=== PATIENT | female | born 1975 | race Caucasian/White ===

== ENCOUNTER 2019-07-11 09:54 | Outpatient (CLI) | payer OTHER ==
[2019-07-11] MEDS ORDERED: gadopentetate dimeglumine 7.5 MMOL/15 ML syringe ONE (15:54)
[2019-07-11] MEDS ORDERED: gadopentetate dimeglumine 5 mmol/10ml vial IV ONE (15:54)
== END 2019-07-11 23:59 | disposition home or self-care (01) ==
LOC: RAD 09:54
PROVIDERS: ATTEND Family Medicine
DX: Q61.02 Congenital multiple renal cysts (principal); N28.9 Disorder of kidney and ureter, unspecified; F17.200 Nicotine dependence, unspecified, uncomplicated
CPT/HCPCS: 74183; A9579

== ENCOUNTER 2020-12-27 09:55 | Day surgery (SDC) | payer OTHER ==
[2020-12-17 17:05] LABS: BASOPHILS # (AUTO) 0.1 X10'3 (0-0.2); BASOPHILS % (AUTO) 0.7 % (0-1); EOSINOPHILS # (AUTO) 0.4 X10'3 (0-0.9); EOSINOPHILS % (AUTO) 3.3 % (0-6); LYMPHOCYTES % (AUTO) 18.1 % (21-51); MEAN CORPUSCULAR HEMOGLOBIN 29.4 PG (27.0-31.0); MEAN CORPUSCULAR HGB CONC 33.4 g/dL (33.0-36.5); MEAN CORPUSCULAR VOLUME 87.8 FL (78-98); MEAN PLATELET VOLUME 9.2 FL (7.4-10.4); MONOCYTES # (AUTO) 0.9 X10'3 (0-0.9); MONOCYTES % (AUTO) 7.7 % (2-12); NEUTROPHILS # (AUTO) 7.9 X10'3 (1.8-7.7); NEUTROPHILS % (AUTO) 70.2 % (42-75); PRE OP HEMATOCRIT 44.1 % (35.0-45.0); PRE OP HEMOGLOBIN 14.7 g/dL (12.0-16.0); PRE OP PLATELET COUNT 311 X10'3 (140-440); RED BLOOD COUNT 5.02 X10'6 (4.20-5.60)
[2020-12-17 17:22] LABS: ALBUMIN 3.3 G/DL (3.4-5.0); ALBUMIN/GLOBULIN RATIO 0.8 (1.1-1.5); ALKALINE PHOSPHATASE 95 IU/L (46-116); BLOOD UREA NITROGEN 12 MG/DL (7-18); CALCIUM 9.3 MG/DL (8.5-10.1); CHLORIDE 105 MMOL/L (99-107); PRE OP ALT 25 U/L (30-65); PRE OP ANION GAP 14 (8-16); PRE OP AST 22 U/L (10-37); PRE OP BILIRUB, TOTAL 0.5 MG/DL (0.0-1.0); PRE OP GLUCOSE 89 MG/DL (70-104); PRE OP SODIUM 141 MMOL/L (135-145); TOTAL CARBON DIOXIDE 22.5 MMOL/L (24-32); TOTAL PROTEIN 7.7 G/DL (6.4-8.2); eGFR 77 ML/MIN
[~2020-12-27] VITALS: Ht 175.3 cm; Wt 148.6 kg
[2020-12-27] VITALS (13 sets, daily range): BP systolic 119–186; BP diastolic 61–110
[~2020-12-27 09:55] MED LIST: HYDR-3972 PO; QUET150T4 PO; SERT25TA PO; SUMA50TA PO; ceFAZolin inj. 3,000 MG in normal saline 100ml IV soln 100 ML IV ONE; famotidine 20mg tablet PO ONE; ringers solution, lacted 1,000 ML IV SCH
[2020-12-27 10:27] LABS: CLARITY,URINE CLOUDY (Clear); COLOR,URINE YELLOW (Yellow); GLUCOSE, URINE NEGATIVE (Neg); KETONES,URINE NEGATIVE (Neg); LEUKOCYTE ESTERASE ,URINE TRACE (Neg); NITRITES, URINE NEGATIVE (Neg); OCCULT BLOOD,URINE SMALL (Neg); PROTEIN,URINE TRACE mg/dl (Neg); UROBILINOGEN,URINE 0.2 E.U/dL (0.2-1.0)
[2020-12-27 10:34] LABS: UA COLLECTION TYPE VOIDED
[2020-12-27 10:36] LABS: MUCUS STRANDS MANY /LPF (Neg); SQUAMOUS EPITHELIAL CELL,UR MANY /LPF (FEW)
[2020-12-27 10:38] LABS: CELLULAR CAST 0-4 /LPF (NEGATIVE); FINE GRANULAR CAST 0-3 /LPF (NEGATIVE)
[2020-12-27 10:41] LABS: BACTERIA,URINE 2+ /HPF (Neg)
[2020-12-27] MEDS ORDERED: bacitracin 15gm ointment TP ONE (10:41)
[2020-12-27] MEDS ORDERED: albuterol 2.5 MG/3 ML nebule NEB ONE (11:40)
[2020-12-27] MEDS ORDERED: propofol inj 20 ML IV ONE ×2 (14:08→15:05)
[2020-12-27] MEDS ORDERED: ROPIVAcaine 0.5% (5mg/ml) 30ml vial ONE ×3 (14:08→15:05)
[2020-12-27] MEDS ORDERED: fentaNYL/PF 50MCG/1 ML 2ML syringe ONE (14:09)
[2020-12-27] MEDS ORDERED: MIDAZolam 5mg/5ml vial ONE (14:09)
[2020-12-27] MEDS ORDERED: LIDOcaine 2% (20mg/ml) 5ml vial ONE (15:05)
[2020-12-27] MEDS ORDERED: rocuronium 10mg/ml inj IV ONE (15:06)
[2020-12-27] MEDS ORDERED: acetaminophen 1,000mg/100ml IV 100 ML IV ONE (15:09)
[2020-12-27] MEDS ORDERED: morphine 4 MG/ML inj SYRINge IV PRN (15:15)
[2020-12-27] MEDS ORDERED: ringers solution, lacted 1,000 ML IV SCH (15:15)
[2020-12-27] MEDS ORDERED: ondansetron/PF 4mg/2ml inj IV PRN (15:15)
[2020-12-27] MEDS ORDERED: labetalol 20mg/4ml (5mg/ml) syringe IV PRN (15:15)
[2020-12-27] MEDS ORDERED: hydrALAZINE 20mg/ml inj. IV PRN (15:15)
[2020-12-27] MEDS ORDERED: morphine 2 MG/ML inj. syringe IV PRN (15:15)
[2020-12-27] MEDS ORDERED: meperidine/PF 25mg/ml syringe IV PRN (15:15)
[2020-12-27] MEDS ORDERED: HYDROmorphone/PF 0.2 MG/ML SYRINGE IV PRN ×2 (15:15)
[2020-12-27] MEDS ORDERED: proCHLORperazine 10 MG/2 ml inj IV PRN (15:15)
[2020-12-27] MEDS ORDERED: ROPIVAcaine 0.2% (10 MG/5 ML) BOLUS INJECTION POPLITEAL PRN (15:15)
[2020-12-27] MEDS ORDERED: fentaNYL /PF 50mcg/ml 5ml ampule ONE (15:19)
[2020-12-27] MEDS ORDERED: dexamethasone sod phosphate 4mg/ml inj. ONE (15:46)
[2020-12-27] MEDS ORDERED: ondansetron/PF 4mg/2ml inj ONE (15:46)
[2020-12-27] MEDS ORDERED: ROPIVAcaine 0.2%/PF PUMP/bolus 550 ML POPLITEAL SCH (16:15)
[2020-12-27] MEDS ORDERED: BUPIVAcaine/PF 2.5 mg/ml (0.25%) 30ml vial ONE (16:21)
[2020-12-27] MEDS ORDERED: labetalol 20mg/4ml (5mg/ml) syringe IV ONE (16:30)
[2020-12-27] MEDS ORDERED: morphine 10mg/ml inj. ONE (16:32)
[2020-12-27] MEDS ORDERED: neostigmine methylsulfate 1 MG/ML 10ml vial ONE ×2 (16:33→16:38)
[2020-12-27] MEDS ORDERED: glycopyrrolate 0.2mg/ml inj ONE ×2 (16:33→16:38)
[2020-12-27] MEDS ORDERED: albuterol 60 PUFF/8GM Inhaler IH ONE (16:47)
--- NOTE | 2020-12-27 17:00 | NUR ---
Received from OR via GURNEY , accompanied by Anesthesiologist DR RILEY and report given by Anesthesiolgist. PATIENT WAKING UP, DENIES PAIN, V/S WNL EXCEPT BP-LABATOLOL GIVEN IN OR, NEUROVASCULAR CHECKS INTACT, 20G PIV LUE, DRSG TO RIGHT FOOT, GAIL WRAP AND SPLINT-CDI, FOOT ELEVATED ON-Q PUMP LINE ATTACHED, PAIN BLOCK TO RIGHT FOOT-NO SENSATION NOTED BUT TOES PINK AND WARM
--- NOTE | 2020-12-27 18:58 | NUR ---
PATIENT A&OX4, DENIES PAIN, V/S WNL, NEUROVASCULAR CHECKS INTACT-RIGHT FOOT NERVE BLOCK WORKING, NO SENSATION TO TOES BUT TOES ARE PINK AND WARM, ON-Q ATTACHED AND RUNNING AT 2ML'S PT HAS BEEN EDUCATED REGARDING ON-Q USE AND D/C - ALL QUESTIONS ANSWERED, 20G PIV D/C WITH NO COMPLICATIONS OBSERVED , DRESSING TO RIGHT FOOT WRAPPED-CDI, SCD OFF. I HAVE REVIEWED D/C INSTRUCTIONS WITH PATIENT AND FAMILY AND THEY HAVE VERBALIZED UNDERSTANDING. PATIENT D/C HOME WITH ALL BELONGINGS AND FAMILY GAVE TRANSPORT HOME.
== END 2020-12-27 19:00 | disposition home or self-care (01) ==
LOC: PAS 09:55
PROVIDERS: ATTEND Podiatrist Foot & Ankle Surgery
DX: M19.071 Primary osteoarthritis, right ankle and foot (principal); G89.18 Other acute postprocedural pain; M79.671 Pain in right foot; M92.61 Juvenile osteochondrosis of tarsus, right ankle; M76.61 Achilles tendinitis, right leg
CPT/HCPCS: 27687; 28737; 36415; 64446; 64448; 73600; 76000; 80053; 81001; 82948; 85025; 87635; 93005; 94640; 94760; A6223; C1713; J0131; J0690; J1100; J2001; J2250; J2270; J2405; J2704; J2710; J3010; J3490; J7120; 76937; A4215; A4618; A6449; A7000; J2795